=== PATIENT | female | born 1990 | race Caucasian/White ===

== ENCOUNTER 2022-01-11 16:31 | Outpatient (CLI) | payer OTHER, SELFPAY ==
[2022-01-11 16:48] LABS: Hematocrit 42.3 % (37.0-47.0); Hemoglobin 14.3 g/dL (12.0-15.0); Mean Corpuscular HGB Conc 33.8 g/dl (32-36); Mean Corpuscular Volume 88.9 fl (80-100); Mean Platelet Volume 10.1 fl (7.4-10.4); Platelet Count Result 362 k/mm3 (150-375); Red Blood Count 4.76 M/mm3 (4.2-5.4); Red Cell Distribution Width 13.6 % (11.5-14.5); White Blood Count 6.5 K/mm3 (4.5-10.0)
[2022-01-11 17:19] LABS: Erythrocyte Sedimentation Rate 6 mm/hr (0-20)
[2022-01-11 18:04] LABS: Alanine Aminotransferase 13 U/L (6-35); Alkaline Phosphatase 59 U/L (38-126); Anion Gap 8 mmol/L (8-16); Aspartate Amino Transferase 27 U/L (14-36); Bilirubin,Total 0.5 mg/dL (0.2-1.3); Blood Urea Nitrogen 8 mg/dL (7-17); CRP < 0.5 mg/dL (<1.0); Calcium 9.1 mg/dL (8.4-10.2); Carbon Dioxide 29 mmol/L (22-30); Chloride 101 mmol/L (98-107); Estimated Glomerular Filt Rate > 60; Glucose 94 mg/dL (65-110); Potassium 3.9 mmol/L (3.4-5.0); Sodium 138 mmol/L (137-145)
== END 2022-01-11 16:32 | disposition home or self-care (01) ==
LOC: ANHLAB 16:35
PROVIDERS: PCP Nurse Practitioner Family; Visit Provider Nurse Practitioner Family
DX: K50.90 Crohn's disease, unspecified, without complications (principal)
CPT/HCPCS: 36415; 80053; 85027; 85652; 86140

== ENCOUNTER 2022-06-17 00:16 | Day surgery (SDC) | payer OTHER, SELFPAY ==
[2022-06-06 12:22] VITALS: BMI 20.4
[2022-06-17 13:31] VITALS: BP 116/73; PULSE 67; RESP 18; TEMP 36.5; O2SAT 100
[2022-06-17] MEDS: LACTATED RINGERS 1,000 ML 150 ML IV CONT (13:41)
--- NOTE | 2022-06-17 13:43 | P.PNAN_ITS ---
Anes - Initial Pre Proc Eval Procedure: Operation Date: 06/17/22 09:00 Proposed Procedures p Colonoscopy - Timoteo Clrak MD Date/Time: 06/17/22 13:43 Surgeon: Timoteo Clark MD Pre Op Diagnosis: crohn's disease Patient Data Age: 31 Gender: F Height: 1.55 m Weight: 50.5 kg Last Vital Signs Temp 97.7 F 06/17/22 13:31 Pulse 67 06/17/22 13:31 Resp 18 06/17/22 13:31 BP 116/73 06/17/22 13:31 Pulse Ox 100 06/17/22 13:31 O2 Del Method Room Air 06/17/22 13:31 Allergies Allergy/AdvReac Type Severity Reaction Status Date / Time amoxicillin Allergy Mild Unknown Verified 06/17/22 13:30 brompheniramine Allergy Mild Itching Verified 06/17/22 13:30 latex Allergy Mild Unknown Verified 06/17/22 13:30 Penicillins Allergy Mild unknown Verified 06/17/22 13:30 tramadol Allergy Mild Unknown Verified 06/17/22 13:30 Home Medications Medication Instructions Recorded Confirmed Type amitriptyline 25 mg tablet 25 mg PO QHS PRN headache 11/04/21 06/06/22 History azathioprine 50 mg tablet 50 mg PO DAILY 3 months #90 tabs 02/23/22 06/06/22 Rx sulfasalazine 500 mg 2 g PO BID 05/27/22 06/06/22 History tablet,delayed release Patient hx anesthesia problems: none Family hx anesthesia problems: none Results Review: All pre-operative results and documents have been reviewed as part of the pre- operative evaluation. [facility] Past Medical History Medical History Crohn disease Social History Social History Smoking status: Current every day smoker Tobacco type: cigarettes and e-cigarettes/vaping Smokeless tobacco user: other Alcohol intake: unknown Substance use: never Living arrangements: with family Spiritual care concerns: No Anes - Eval Final PreProcedure Day of Procedure 06/17/22 13:43 Patient weight: normal Heart: regular rate and rhythm Lungs: clear to auscultation Airway: Mallampati scale class II Neurological: alert and oriented Last oral intake: >/= 8 hours (states had a sip of seven up in the parking lot: ups driver attest to her story; told her about the possibilty of aspiration and she states only a sip) ASA classification: II Emergent: no Anesthetic plan: proceed Anesthesia type and monitoring: general and standard monitoring Results Review: All pre-operative results and documents have been reviewed as part of the pre- operative evaluation. Informed Consent: The patient's anesthetic plan and its attendant risks and benefits were discuss ed with the patient/family/POA. Questions were solicited and answers provided to the satisfaction of the patient/family/POA.
--- NOTE | 2022-06-17 13:45 | WPDHPUPDATE1 ---
History and Physical Update Update Date/Time: 06/17/22 13:45 History and Physical has been reviewed, including an updated exam of the patient. There are NO changes in the patient's condition. Risks, benefits, and alternatives have been discussed and questions answered. Patient agrees to proceed with procedure.
[2022-06-17 14:09] VITALS: BP 108/68; PULSE 72; RESP 21; O2SAT 100
[2022-06-17 14:19] VITALS: BP 116/79; PULSE 62; RESP 19; O2SAT 100
[2022-06-17 14:29] VITALS: BP 120/83; PULSE 58; RESP 19; O2SAT 100
[2022-06-17 14:39] VITALS: BP 117/81; PULSE 60; RESP 20; O2SAT 100
== END 2022-06-17 14:52 | disposition home or self-care (01) ==
PROVIDERS: Visit Provider Internal Medicine Gastroenterology
PROC: 0DJD8ZZ Inspection of Lower Intestinal Tract, Via Natural or Artificial Opening Endoscopic (ICD-10-PCS; CPT 45378; principal; 2022-06-17 09:00)
DX: K50.90 Crohn's disease, unspecified, without complications (principal); K64.8 Other hemorrhoids; F17.210 Nicotine dependence, cigarettes, uncomplicated; F17.290 Nicotine dependence, other tobacco product, uncomplicated
CPT/HCPCS: 45380; 88305; J2704; J7120

== ENCOUNTER 2023-06-30 11:43 | Outpatient (CLI) | payer OTHER, SELFPAY ==
[2023-06-30 12:10] LABS: Hematocrit 38.8 % (37.0-47.0); Hemoglobin 13.1 g/dL (12.0-15.0); Mean Corpuscular HGB Conc 33.8 g/dl (32-36); Mean Corpuscular Hemoglobin 29.4 pg (26-34); Mean Corpuscular Volume 87.2 fl (80-100); Mean Platelet Volume 10.1 fl (7.4-10.4); Platelet Count Result 330 k/mm3 (150-375); Red Blood Count 4.45 M/mm3 (4.2-5.4); Red Cell Distribution Width 13.2 % (11.5-14.5); White Blood Count 6.6 K/mm3 (4.5-10.0)
[2023-06-30 12:27] LABS: Alanine Aminotransferase 13 U/L (6-35); Albumin Level 4.6 g/dL (3.5-5.1); Alkaline Phosphatase 51 U/L (38-126); Anion Gap 11 mmol/L (8-16); Aspartate Amino Transferase 22 U/L (14-36); Bilirubin,Total 0.6 mg/dL (0.2-1.3); Blood Urea Nitrogen 5 mg/dL (7-17); CRP < 0.5 mg/dL (<1.0); Calcium 8.8 mg/dL (8.4-10.2); Carbon Dioxide 24 mmol/L (22-30); Chloride 103 mmol/L (98-107); Estimated Glomerular Filt Rate > 60; Glucose 88 mg/dL (65-110); Potassium 3.4 mmol/L (3.4-5.0); Sodium 138 mmol/L (137-145)
[2023-06-30 13:14] LABS: Erythrocyte Sedimentation Rate 13 mm/hr (0-20)
[2023-06-30 13:32] LABS: Iron 83 ug/dL (37-170)
[2023-06-30 13:43] LABS: Percent Iron Saturation 24 % (20-50)
[2023-06-30 14:10] LABS: Ferritin 7.67 ng/mL (6.24-137)
[2023-07-04 09:58] LABS: Vitamin D 1,25 (OH)2 Total 49 pg/mL (18-72); Vitamin D2 1,25 (OH)2 <8 pg/mL; Vitamin D3 1,25 (OH)2 49 pg/mL
== END 2023-06-30 11:44 | disposition home or self-care (01) ==
LOC: ANHLAB 11:44
PROVIDERS: Visit Provider Nurse Practitioner
DX: K50.90 Crohn's disease, unspecified, without complications (principal)
CPT/HCPCS: 36415; 80053; 82652; 82728; 83540; 83550; 85027; 85652; 86140

== ENCOUNTER 2023-07-01 18:43 | Emergency (ER) | payer OTHER, SELFPAY ==
--- NOTE | ~2023-07-01 | CT_ITS ---
EXAMINATION: CT abdomen pelvis w con DATE: 07/01/2023 20:53 INDICATION: Right lower quadrant abdominal pain TECHNIQUE: Computed tomography (CT) of the abdomen and pelvis was performed with 100 mL Omnipaque-350 intravenous contrast. Automated exposure control and iterative reconstruction technique were employe d. The dose-length product was 221.21 mGy-cm. COMPARISON: None. FINDINGS: Lower thorax: Unremarkable Liver: Normal. Biliary/Gallbladder: Gallbladder is normal. No bile duct dilation. Pancreas: No mass or duct dilation. Spleen: Normal. Adrenals:No mass. Kidneys: No suspicious mass, obstructing stone, or hydronephrosis. GI tract: No small or large bowel dilation. Normal appendix. Mesentery/Peritoneum: No ascites, mass, or free air. Retroperitoneum: No mass. Pelvis: Pelvic organs are within normal limits. Right corpus luteal cyst. Small volume pelvic fluid, within physiologic range. Soft Tissues: Soft tissues and body wall unremarkable. Bones: No acute osseous finding. Right-sided L5 sacralization. IMPRESSION: No acute abdominopelvic process detected. Reviewed, dictated and finalized at location K. NG CUTTER
[2023-07-01 18:51] VITALS: BP 127/93; PULSE 78; RESP 16; TEMP 36.8; O2SAT 100
[2023-07-01] MEDS: SODIUM CHLORIDE 0.9% IV 1,000 ML 999 ML IV CONT (19:45)
[2023-07-01] MEDS: MORPHINE SULFATE (*CRX) 4 MG/ML INJ IV PUSH (19:45)
[2023-07-01] MEDS: ONDANSETRON INJ 4 MG/2 ML VIAL IV PUSH (19:45)
[2023-07-01 19:51] LABS: Basophils Percent Auto 0.5 % (0.2-1.2); Eosinophils Absolute Auto 0.1 K/mm3 (0-0.3); Eosinophils Percent Auto 0.8 % (0-4.4); Hematocrit 36.5 % (37.0-47.0); Hemoglobin 12.4 g/dL (12.0-15.0); Immature Granulocyte Absolute 0.03 K/mm3 (0.00-0.031); Immature Granulocyte Percent A 0.4 % (0-0.5); Lymphocytes Absolute Auto 1.75 K/mm3 (0.9-3.2); Lymphocytes Percent Auto 20.9 % (18.3-44.2); Mean Corpuscular Hemoglobin 29.7 pg (26-34); Mean Corpuscular Volume 87.3 fl (80-100); Mean Platelet Volume 10.8 fl (7.4-10.4); Monocytes Absolute Auto 0.6 K/mm3 (0.1-0.6); Monocytes Percent Auto 7.4 % (2.6-8.5); Neutrophils Absolute Auto 5.9 K/mm3 (1.3-6.7); Platelet Count Result 336 k/mm3 (150-375); Red Blood Count 4.18 M/mm3 (4.2-5.4); Red Cell Distribution Width 13.1 % (11.5-14.5); White Blood Count 8.4 K/mm3 (4.5-10.0)
--- NOTE | 2023-07-01 20:00 | ED.GENADULT ---
HPI - General Adult General Chief complaint: Abdominal Pain Stated complaint: RLQ pain Time Seen by Provider: 07/01/23 19:16 History of Present Illness HPI narrative: Patient 31-year-old female presents emerged department with chief complaint of abdominal pain. The patient reports over the last several days has been having pain in the right lower quadrant the patient states the pain started radiating to the right side of her back today. The patient states she has history of Crohn's and actually was seen by her clinical cytopathologist yesterday and did not tell her doctor about her abdominal pain. Patient denies fever denies vomiting denies diarrhea. Related Data Home Medications Medication Instructions Recorded Confirmed amitriptyline 25 mg tablet 25 mg PO QHS PRN headache 11/04/21 06/30/23 Allergies Allergy/AdvReac Type Severity Reaction Status Date / Time amoxicillin Allergy Mild Unknown Verified 07/01/23 19:28 brompheniramine Allergy Mild Itching Verified 07/01/23 19:28 latex Allergy Mild Unknown Verified 07/01/23 19:28 Penicillins Allergy Mild unknown Verified 07/01/23 19:28 tramadol Allergy Mild Unknown Verified 07/01/23 19:28 Review of Systems Review of Systems: A 10 system review of systems was completed on the patient and is negative except for what is stated in the HPI. Nursing and ancillary documentation was reviewed. PMFSH Past Medical History Medical History Abdominal cramping Crohn disease Facial rash Migraine Tobacco abuse Social History Social History Smoking status: Current every day smoker Tobacco type: cigarettes and e-cigarettes/vaping Smokeless tobacco user: other Alcohol intake: unknown Substance use: never Living arrangements: with family Spiritual care concerns: No Exam Narrative: GENERAL: Well-appearing, well-nourished, and in no acute distress. HEAD: Normocephalic, atraumatic. EYES: PERRLA and EOMI. ENT: Nares clear, no rhinorrhea or epistaxis. Mucous membranes moist. NECK: Supple. CHEST: Clear to auscultation. No respiratory distress. HEART: Regular rate and rhythm. No murmur heard. Normal peripheral pulses. ABDOMEN: Soft, tenderness to palpation in the right lower quadrant, nondistended, normal active bowel sounds. EXTREMITIES: Normal range of motion. No edema. SKIN: Warm, dry, no rash. NEURO: No focal deficits. Alert and oriented x3. PSYCH: Normal mood and affect. Course Vital Signs Vital signs: Vital Signs Temperature 36.8 C 07/01/23 18:51 Pulse Rate 78 07/01/23 18:51 Respiratory Rate 16 07/01/23 18:51 Blood Pressure 127/93 H 07/01/23 18:51 Pulse Oximetry 100 07/01/23 18:51 Oxygen Delivery Room Air 07/01/23 18:51 Temperature 36.8 C 07/01/23 18:51 Pulse Rate 78 07/01/23 18:51 Respiratory Rate 16 07/01/23 18:51 Blood Pressure 127/93 H 07/01/23 18:51 Pulse Oximetry 100 07/01/23 18:51 Oxygen Delivery Room Air 07/01/23 18:51 Medical Decision Making MDM Narrative Medical decision making narrative: Differential diagnosis includes colitis, diverticulitis, Urinalysis from yesterday showed no evidence of UTI CBC was within normal limits CMP was within normal limits lipase was normal. CT scan of the abdomen pelvis showed no evidence of acute abnormality Vital Signs Vital Signs: Vital Signs Temperature 36.8 C 07/01/23 18:51 Pulse Rate 78 07/01/23 18:51 Respiratory Rate 16 07/01/23 18:51 Blood Pressure 127/93 H 07/01/23 18:51 Pulse Oximetry 100 07/01/23 18:51 Oxygen Delivery Room Air 07/01/23 18:51 Temperature 36.8 C 07/01/23 18:51 Pulse Rate 78 07/01/23 18:51 Respiratory Rate 16 07/01/23 18:51 Blood Pressure 127/93 H 07/01/23 18:51 Pulse Oximetry 100 07/01/23 18:51 Oxygen Delivery Room Air 07/01/23 18:51 Lab Data 07/01/23
[2023-07-01 20:29] LABS: Alanine Aminotransferase 12 U/L (6-35); Albumin Level 4.3 g/dL (3.5-5.1); Alkaline Phosphatase 49 U/L (38-126); Anion Gap 8 mmol/L (8-16); Aspartate Amino Transferase 23 U/L (14-36); Bilirubin,Total 0.7 mg/dL (0.2-1.3); Blood Urea Nitrogen 8 mg/dL (7-17); Calcium 8.7 mg/dL (8.4-10.2); Carbon Dioxide 23 mmol/L (22-30); Chloride 105 mmol/L (98-107); Estimated CRCL calculation 86 ml/min; Estimated Glomerular Filt Rate > 60; Glucose 98 mg/dL (65-110); Potassium 3.4 mmol/L (3.4-5.0); Sodium 136 mmol/L (137-145)
[2023-07-01 20:56] LABS: Lipase 124 U/L (23-300)
[2023-07-01 21:58] LABS: Appearance Urine Clear (Clear); Bacteria Urine None Seen /hpf; Bilirubin Urine Negative (Negative); Blood Urine Trace (Negative); Color Urine Yellow (Yellow); Glucose Urine UA Negative (Negative); Ketones Urine Trace mg/dL (Negative); Leukocyte Esterase Ur Negative LEU/UL (Negative); Nitrate Urine Negative (Negative); Non Pathogenic Casts 0-2; Protein Urine Negative (Negative); RBC Urine 0-2 /hpf (0-2); Squamous Epithelial Cell Urine None seen /hpf (Few); Urobilinogen Urine 0.2 mg/dL (<2.0); WBC Urine 0-5 /hpf
[2023-07-01 22:04] LABS: Specific Grav Ur 1.059 (1.001-1.035)
[2023-07-01 22:05] LABS: Add Urine Microscopic? YES
[2023-07-01] MEDS: DICYCLOMINE HCL 10 MG CAPSULE 20 MG PO (22:35)
== END 2023-07-01 22:41 | disposition home or self-care (01) ==
PROVIDERS: Emergency Provider Emergency Medicine; PCP Physician Assistant
DX: R10.31 Right lower quadrant pain (principal); K50.90 Crohn's disease, unspecified, without complications; F17.210 Nicotine dependence, cigarettes, uncomplicated; F17.290 Nicotine dependence, other tobacco product, uncomplicated
CPT/HCPCS: 36415; 74177; 80053; 81001; 81025; 83690; 85025; 96361; 96374; 96375; 99284; A9270; J2270; J2405; J7030; Q9967

== ENCOUNTER 2023-07-07 01:05 | Day surgery (SDC) | payer OTHER, SELFPAY ==
[2023-07-06 15:41] VITALS: BMI 22.3
--- NOTE | 2023-07-06 15:48 | PC.NURSE ---
Report to the Outpatient Waiting Room, entrance under the green pavilion located off [facility], at time 1330 on date 07/07/23. Planned Procedure Time: 1530. Time changes happen often and if your time is changed the preop area will call you the afternoon before. - You and your visitor will be asked to self-screen and do not enter if you have any COVID symptoms. - A mask is optional within the hospital at this time. Patients may have clear liquids (water, carbonated beverages, clear teas, apple juice) until 3 hours prior to surgery with a maximum of 20 ounces. - No food from midnight until time of surgery Take the following medications with a SIP of water the morning of surgery: NONE DO NOT STOP ANY OF YOUR OTHER PRESCRIPTION MEDICATIONS PRIOR TO SURGERY ?EXCEPT THE FOLLOWING Medications to discontinue per physician: N/A Date to take last dose: N/A Please no make-up, nail faroese, hairspray, perfume, deodorant, or body powder the day of surgery. No jewelry (including any body piercings) or valuables the day of surgery, leave them at home. Please take a shower or bath the night before, or the morning of, surgery with an antibacterial soap. Wear comfortable, loose fitting clothing. - Jewelry must be removed prior to entering the operating room. Rings and piercings that are not removed may be cut off. - The hospital will not accept responsibility for valuables. - Please leave all valuables, including medications, at home the day of surgery. If you are going home after surgery, a licensed route driver must drive you home. - NO public transportation without another adult if you receive anesthesia. - We recommend that an adult stay with you for 24 hours following discharge. - We also recommend that you do not drive, make important decision, drink alcoholic beverages, or take any drugs that were not prescribed by your health care provider for at least 24 hours after your discharge time. Follow any additional instructions given to you from your surgeon. If you or anyone in your household have experienced Covid symptoms in the past week, please notify your surgeon or the nurse liaison at the phone number below for possible testing. Telephone instructions given to PT - MYRIAM LYNNE and asked if any additional questions and then verbalized understanding. Patient advised to call surgeon office or pre surgery nurse liaison [phone] if any additional questions.
[2023-07-07] VITALS (9 sets, daily range): BP systolic 99–125; BP diastolic 56–94; PULSE 51–85; RESP 14–20; TEMP 36.1–36.7; O2SAT 96–100
--- NOTE | 2023-07-07 06:37 | WPDHPUPDATE1 ---
History and Physical Update Update Date/Time: 07/07/23 06:37 History and Physical has been reviewed, including an updated exam of the patient. There are NO changes in the patient's condition. Risks, benefits, and alternatives have been discussed and questions answered. Patient agrees to proceed with procedure.
--- NOTE | 2023-07-07 06:40 | P.HP_ITS ---
H&P: HPI History of Present Illness Date/Time: 07/07/23 06:40 Chief Complaint: Right-sided ectopic Narrative: This is 32-year-old female with an ectopic on she is admitted for laparoscopic salpingectomy or salpingitis risks and benefits [facility] Past Medical History Medical History Abdominal cramping Crohn disease Facial rash Migraine Tobacco abuse Social History Social History Smoking status: Current every day smoker Tobacco type: e-cigarettes/vaping Smokeless tobacco user: other Alcohol intake: current Alcohol use details: RARE Substance use: current Substance use type: marijuana Other substance usage details: THC VAPE FOR SLEEP Living arrangements: with family Spiritual care concerns: No Meds Home Medications and Allergies Home Medications Medication Instructions Recorded Confirmed Type amitriptyline 25 mg tablet 25 mg PO QHS PRN headache 11/04/21 07/06/23 History azathioprine 50 mg tablet 50 mg PO DAILY 3 months #90 tabs 12/22/22 07/06/23 Rx sulfasalazine 500 mg tablet 2 g PO BID 1 month #240 tabs 01/10/23 07/06/23 Rx adalimumab 40 mg/0.4 mL See Rx Instructions subcut 06/30/23 07/06/23 Rx subcutaneous pen kit (Humira(CF) .COMPLEX #2 ea Pen) adalimumab 80 mg/0.8 mL See Rx Instructions subcut 06/30/23 07/06/23 Rx subcutaneous pen kit (Humira(CF) .COMPLEX #3 ea Pen Crohn's-Ulc Colitis-Hid Sup Strt) dicyclomine 20 mg tablet 20 mg PO QID PRN abdominal 07/01/23 07/06/23 Rx discomfort #20 tabs ondansetron 4 mg disintegrating 4 mg PO Q8H PRN nausea and 07/01/23 07/06/23 Rx tablet vomiting #10 tabs oxycodone-acetaminophen 5 mg-325 1 tablet PO Q4H PRN pain #20 tabs 07/07/23 Rx mg tablet (Endocet) Allergies Allergy/AdvReac Type Severity Reaction Status Date / Time amoxicillin Allergy Mild Hives Verified 07/06/23 15:39 brompheniramine Allergy Mild Itching Verified 07/06/23 15:39 latex Allergy Mild Itching Verified 07/06/23 15:39 Penicillins Allergy Mild Hives Verified 07/06/23 15:39 tramadol Allergy Mild Unknown Verified 07/06/23 15:39 Exam Const: General: cooperative, healthy appearing and comfortable Nutritional Appearance: average body habitus Orientation/consciousness: oriented to person, oriented to place and oriented to time HENMT: Head: normal to inspection Resp: Effort & Inspection: normal respiratory effort Cardio: Rate: regular rate Rhythm: regular rhythm Heart sounds: S1 normal heart sound present and S2 normal heart sound present GI: Inspection: normal to inspection : External Female Exam: normal external appearance Speculum Exam - Vagina: normal appearance of the vagina and vaginal bleeding Speculum Exam - Cervix: Cervical os open Bimanual exam- vagina & uterus: uterine size normal Bimanual Exam- Adnexa, other: tender on the right Assessment and Plan Assessment and plan (1) Ectopic : Code(s): O00.90 - Unspecified ectopic without intrauterine Status: Acute Plan Laparoscopic salpingostomy versus salpingectomy
[2023-07-07] MEDS: LACTATED RINGERS 1,000 ML 30 ML IV CONT ×2 (14:20→17:55)
[2023-07-07] MEDS: KETOROLAC 15 MG/ML VIAL (*BKC) IV PUSH (14:20)
[2023-07-07] MEDS: ACETAMINOPHEN 500 MG TABLET 1000 MG PO (14:20)
[2023-07-07] MEDS: SCOPOLAMINE 1.5 MG PATCH TRANSDERM (14:53)
--- NOTE | 2023-07-07 15:11 | WPDANESEPPF ---
Anes - Initial Pre Proc Eval Procedure: Operation Date: 07/07/23 15:30 Proposed Procedures p Laparoscopic Right Salpingostomy, Possible Right Salpingectomy - Ike Day MD Date/Time: 07/07/23 15:11 Surgeon: Ike Day MD Pre Op Diagnosis: tubal Patient Data Age: 32 Gender: F Height: 1.56 m Weight: 52.7 kg Last Vital Signs Temp 36.7 C 07/07/23 14:42 Pulse 69 07/07/23 14:42 Resp 14 07/07/23 14:42 BP 116/80 07/07/23 14:42 Pulse Ox 100 07/07/23 14:42 O2 Del Method Room Air 07/07/23 14:42 Allergies Allergy/AdvReac Type Severity Reaction Status Date / Time amoxicillin Allergy Mild Hives Verified 07/07/23 14:54 brompheniramine Allergy Mild Itching Verified 07/07/23 14:54 latex Allergy Mild Itching Verified 07/07/23 14:54 Penicillins Allergy Mild Hives Verified 07/07/23 14:54 tramadol Allergy Mild Unknown Verified 07/07/23 14:54 Home Medications Medication Instructions Recorded Confirmed Type amitriptyline 25 mg tablet 25 mg PO QHS PRN headache 11/04/21 07/06/23 History azathioprine 50 mg tablet 50 mg PO DAILY 3 months #90 tabs 12/22/22 07/06/23 Rx sulfasalazine 500 mg tablet 2 g PO BID 1 month #240 tabs 01/10/23 07/06/23 Rx adalimumab 40 mg/0.4 mL See Rx Instructions subcut 06/30/23 07/06/23 Rx subcutaneous pen kit (Humira(CF) .COMPLEX #2 ea Pen) adalimumab 80 mg/0.8 mL See Rx Instructions subcut 06/30/23 07/06/23 Rx subcutaneous pen kit (Humira(CF) .COMPLEX #3 ea Pen Crohn's-Ulc Colitis-Hid Sup Strt) dicyclomine 20 mg tablet 20 mg PO QID PRN abdominal 07/01/23 07/06/23 Rx discomfort #20 tabs ondansetron 4 mg disintegrating 4 mg PO Q8H PRN nausea and 07/01/23 07/06/23 Rx tablet vomiting #10 tabs oxycodone-acetaminophen 5 mg-325 1 tablet PO Q4H PRN pain #20 tabs 07/07/23 Rx mg tablet (Endocet) Patient hx anesthesia problems: none Family hx anesthesia problems: none Results Review: All pre-operative results and documents have been reviewed as part of the pre-operative evaluation. [facility] Past Medical History Medical History Abdominal cramping Crohn disease Facial rash Migraine Tobacco abuse Social History Social History Smoking status: Current every day smoker Tobacco type: e-cigarettes/vaping Smokeless tobacco user: other Alcohol intake: current Alcohol use details: RARE Substance use: current Substance use type: marijuana Other substance usage details: THC VAPE FOR SLEEP Living arrangements: with family Spiritual care concerns: No Anes - Eval Final PreProcedure Day of Procedure 07/07/23 15:11 Patient weight: normal Heart: regular rate and rhythm Lungs: clear to auscultation Airway: Mallampati scale class II Neurological: alert and oriented Last oral intake: >/= 8 hours ASA classification: II Emergent: no Anesthetic plan: proceed Anesthesia type and monitoring: general ETT and standard monitoring Results Review: All pre-operative results and documents have been reviewed as part of the pre-operative evaluation. Informed Consent: The patient's anesthetic plan and its attendant risks and benefits were discussed with the patient/family/POA. Questions were solicited and answers provided to the satisfaction of the patient/family/POA.
--- NOTE | 2023-07-07 16:33 | P.OP_ITS ---
Procedure Note - Detailed Date of Procedure 07/07/23 Pre-op Diagnosis tubal Post-op Diagnosis Same Procedure Performed Laparoscopic right salpingectomy with resection of ectopic Surgeon Ike Day MD Anesthesia General Indications Since 32-year-old 1 para 0 with a right tubal ectopic Findings Normal-appearing ovaries and tubes were left. A right ectopic was seen Description of Procedure Patient is prepped draped in the normal sterile fashion placed in dorsal lithotomy position. Under excellent general trach anesthesia weighted speculum placed posterior fornix vagina. Anterior lip of cervix grasped with single- tooth tenaculum and the Patterson's cannula inserted cervix attached to the single- tooth. This was used later for uterine ablation. After empty the bladder clear urine weighted speculum was removed gloves were changed. An infraumbilical incision made the Veress needle passed in the abdomen. Abdomen filled with CO2 gas [id number]. 5mm trocar advanced under direct visualization assuring no injury. Patient placed in Trendelenburg and a suprapubic incision made the 5mm trocar advanced under direct visualization. The ectopic was seen in the distal 3rd of the right fallopian tube. Right lower quadrant incision made 8mm trocar advanced in the abdomen under direct visualization assuring injury. The tube was placed on stretch in linear incision made with monopolar cautery and the ectopic picked out of the tube.. It appeared to be removed in toto. The couple raw surface areas were cauterized with 35 w per 2nd monopolar cautery irrigation undertaken until clear. The remainder the pelvis appeared within normal limits after irrigation was used to clear that out. The appendix gallbladder and liver edge all appeared within normal limits the lower site removed. The gas removed from the abdomen. The upper sites removed the surgeon closed with 4 Monocryl glue patient was wakened up in satisfactory condition. All sponge, needle, counts were correct. There were no immediate complications blood loss estimated at25cc Estimated Blood Loss 5 Drains No Packing No Pathology Yes Complications No immediate complications Condition Stable Disposition PACU
[2023-07-07] MEDS: fentaNYL CITRATE INJ (*CRX) 100 MCG/2 ML VIAL 25 MCG IV PUSH ×4 (16:47→16:56)
[2023-07-07] MEDS: oxyCODONE HCL (*CRX) 5 MG TAB IR PO (18:11)
[2023-07-07] MEDS: RHO(D) IMMUNE GLOBULIN 300 MCG/2 ML SYRINGE IM (18:29)
--- NOTE | 2023-07-07 18:30 | SUR.PHASEII ---
MIRIAM LOT # [id number], EXP 10/13/2025.
== END 2023-07-07 18:55 | disposition home or self-care (01) ==
PROVIDERS: PCP Physician Assistant; Visit Provider Obstetrics & Gynecology
PROC: (CPT 49320; principal; 2023-07-07 15:30)
DX: O00.101 Right tubal pregnancy without intrauterine pregnancy (principal); O99.619 Diseases of the digestive system complicating pregnancy, unspecified trimester; K50.90 Crohn's disease, unspecified, without complications; O99.320 Drug use complicating pregnancy, unspecified trimester; F12.90 Cannabis use, unspecified, uncomplicated; O99.330 Smoking (tobacco) complicating pregnancy, unspecified trimester; F17.290 Nicotine dependence, other tobacco product, uncomplicated; Z79.620 Long term (current) use of immunosuppressive biologic; Z3A.00 Weeks of gestation of pregnancy not specified
CPT/HCPCS: 59151; 36415; 85461; 86850; 86900; 86901; 88305; 90384; A9270; J0330; J1100; J1885; J2250; J2405; J2704; J2790; J3010; J7030; J7120

== ENCOUNTER 2024-04-11 12:21 | Outpatient (CLI) | payer OTHER, SELFPAY ==
[2024-04-11 14:23] LABS: Hepatitis B Surface Antigen Negative (Negative)
[2024-04-11 14:40] LABS: Hepatitis B Surface Anti Res Negative
[2024-04-12 10:29] LABS: Hepatitis B Core Ab Total NON-REACTIVE (NON-REACTIVE)
[2024-04-17 10:48] LABS: NIL 0.04 IU/mL; Quantiferon TB Plus, 1T NEGATIVE (NEGATIVE)
== END 2024-04-11 12:22 | disposition home or self-care (01) ==
LOC: ANHLAB 12:24
PROVIDERS: Visit Provider Nurse Practitioner Family
DX: K50.90 Crohn's disease, unspecified, without complications (principal); Z79.899 Other long term (current) drug therapy; Z11.59 Encounter for screening for other viral diseases
CPT/HCPCS: 36415; 86480; 86704; 86706; 87340

== ENCOUNTER 2024-07-04 12:58 | Outpatient (CLI) | payer OTHER, SELFPAY ==
[2024-07-04 13:29] LABS: Hematocrit 43.3 % (37.0-47.0); Hemoglobin 14.5 g/dL (12.0-15.0); Mean Corpuscular HGB Conc 33.5 g/dl (32-36); Mean Corpuscular Hemoglobin 28.5 pg (26-34); Mean Corpuscular Volume 85.1 fl (80-100); Mean Platelet Volume 10.5 fl (7.4-10.4); Platelet Count Result 360 k/mm3 (150-375); Red Blood Count 5.09 M/mm3 (4.2-5.4); Red Cell Distribution Width 13.7 % (11.5-14.5); White Blood Count 7.7 K/mm3 (4.5-10.0)
[2024-07-04 13:40] LABS: Alanine Aminotransferase 14 U/L (6-35); Albumin Level 5.2 g/dL (3.5-5.1); Alkaline Phosphatase 59 U/L (38-126); Anion Gap 11 mmol/L (4-12); Aspartate Amino Transferase 32 U/L (14-36); Bilirubin,Total 0.5 mg/dL (0.2-1.3); Blood Urea Nitrogen 7 mg/dL (7-17); CRP < 0.5 mg/dL (<1.0); Calcium 9.7 mg/dL (8.4-10.2); Carbon Dioxide 26 mmol/L (22-30); Chloride 102 mmol/L (98-107); Estimated Glomerular Filt Rate > 60; Glucose 81 mg/dL (65-110); Potassium 3.7 mmol/L (3.4-5.0); Sodium 139 mmol/L (137-145)
[2024-07-04 13:55] LABS: Iron 70 ug/dL (37-170)
[2024-07-04 14:04] LABS: Erythrocyte Sedimentation Rate 1 mm/hr (0-20)
[2024-07-04 14:05] LABS: Percent Iron Saturation 17 % (20-50)
[2024-07-04 14:31] LABS: Ferritin 6.11 ng/mL (6.24-137)
[2024-07-04 14:43] LABS: Folic Acid 7.9 ng/mL (2.76->20)
== END 2024-07-04 12:59 | disposition home or self-care (01) ==
PROVIDERS: Visit Provider Nurse Practitioner
DX: K50.90 Crohn's disease, unspecified, without complications (principal); R10.9 Unspecified abdominal pain
CPT/HCPCS: 36415; 80053; 82607; 82652; 82728; 82746; 83540; 83550; 85027; 85652; 86140

== ENCOUNTER 2024-07-18 05:25 | Emergency (ER) | payer OTHER, SELFPAY ==
--- NOTE | ~2024-07-18 | XR_ITS ---
EXAMINATION: XR hand LT min 3V DATE: 07/18/2024 06:57 INDICATION: Left hand pain post fall TECHNIQUE: Posteroanterior, oblique and lateral views of the left hand were obtained. COMPARISON: 07/18/2024 FINDINGS: Alignment is normal. No fracture. Joint spaces are normal. Soft tissues are unremarkable. IMPRESSION: 1. Negative left hand radiographs. Reviewed, dictated and finalized at location A. [facility]
--- NOTE | ~2024-07-18 | XR_ITS ---
EXAMINATION: XR finger 1st LT min 2V DATE: 07/18/2024 05:59 INDICATION: Pain at the left first metacarpal post injury TECHNIQUE: Dorsal palmar, lateral and 2 oblique views of the left first digit were obtained COMPARISON: None FINDINGS: Alignment is normal. No fracture. Joint spaces are normal. Soft tissues are unremarkable. IMPRESSION: 1. Negative left thumb radiographs. Reviewed, dictated and finalized at location A. [facility]ACTITIONER
[2024-07-18 05:32] VITALS: BP 128/93; PULSE 97; RESP 15; TEMP 36.6; O2SAT 99
[2024-07-18] MEDS: HYDROcodone/acetaminophen (*CRX) 5-325 MG TABLET 1 TAB PO (06:24)
--- NOTE | 2024-07-18 06:34 | ED_ITS ---
HPI - General Adult General Chief complaint: Extremity Injury, Upper Stated complaint: fall, left thumb pain Time Seen by Provider: 07/18/24 06:07 History of Present Illness HPI narrative: patient is a 33-year-old female who presents emergency department with chief complaint of left thumb pain and left hand pain. Patient reports that she got up to go to the bathroom and tripped and fell landing on her left hand patient reports that she has pain in her left thumb and reports that she cannot move her thumb due to the pain Related Data Home Medications Medication Instructions Recorded Confirmed amitriptyline 25 mg tablet 25 mg PO QHS PRN headache 11/04/21 06/12/24 Allergies Allergy/AdvReac Type Severity Reaction Status Date / Time amoxicillin Allergy Mild Hives Verified 07/18/24 05:37 brompheniramine Allergy Mild Itching Verified 07/18/24 05:37 latex Allergy Mild Itching Verified 07/18/24 05:37 Penicillins Allergy Mild Hives Verified 07/18/24 05:37 tramadol Allergy Mild Unknown Verified 07/18/24 05:37 [facility] Past Medical History Medical History Abdominal cramping Crohn disease Facial rash High risk medication use Migraine Need for hepatitis B screening test Tobacco abuse Social History Social History Smoking status: Current every day smoker Tobacco type: e-cigarettes/vaping Smokeless tobacco user: other Alcohol intake: current Alcohol use details: RARE Substance use: current Substance use type: marijuana Other substance usage details: THC VAPE FOR SLEEP Living arrangements: with family Spiritual care concerns: No Course Vital Signs Vital signs: Vital Signs Temperature 36.6 C 07/18/24 05:32 Pulse Rate 97 07/18/24 05:32 Respiratory Rate 15 07/18/24 05:32 Blood Pressure 128/93 H 07/18/24 05:32 Pulse Oximetry 99 07/18/24 05:32 Oxygen Delivery Room Air 07/18/24 05:32 Temperature 36.6 C 07/18/24 05:32 Pulse Rate 97 07/18/24 05:32 Respiratory Rate 15 07/18/24 05:32 Blood Pressure 128/93 H 07/18/24 05:32 Pulse Oximetry 99 07/18/24 05:32 Oxygen Delivery Room Air 07/18/24 05:32 Medical Decision Making [facility] Narrative Medical decision making narrative: plain film x-rays were obtained that showed no evidence of fracture differential diagnosis includes fracture, sprain, contusion Vital Signs Vital Signs: Vital Signs Temperature 36.6 C 07/18/24 05:32 Pulse Rate 97 07/18/24 05:32 Respiratory Rate 15 07/18/24 05:32 Blood Pressure 128/93 H 07/18/24 05:32 Pulse Oximetry 99 07/18/24 05:32 Oxygen Delivery Room Air 07/18/24 05:32 Temperature 36.6 C 07/18/24 05:32 Pulse Rate 97 07/18/24 05:32 Respiratory Rate 15 07/18/24 05:32 Blood Pressure 128/93 H 07/18/24 05:32 Pulse Oximetry 99 07/18/24 05:32 Oxygen Delivery Room Air 07/18/24 05:32 Discharge Plan Discharge Clinical Impression: Contusion of hand, left, Left thumb sprain Patient Disposition: Home, Self-Care Condition: Stable Instructions: Antibiotic Form, Contusion in Adults (ED), Finger Sprain (ED) Prescriptions: No Action amitriptyline 25 mg tablet 25 mg PO QHS PRN (Reason: headache) ondansetron 4 mg tablet,disintegrating 4 mg PO Q8H PRN (Reason: nausea and vomiting) Qty: 10 0RF dicyclomine 20 mg tablet 20 mg PO QID PRN (Reason: abdominal discomfort) Qty: 20 0RF oxycodone-acetaminophen [Endocet] 5-325 mg tablet 1 tablet PO Q4H PRN (Reason: pain) Qty: 20 0RF azathioprine 50 mg tablet 50 mg PO DAILY 90 Days Qty: 90 11RF sulfasalazine 500 mg tablet 2 g PO BID 30 Days Qty: 240 6RF Rx Instructions: give with food (meal/snack) Humira(CF) Pen [id number] 80 mg/0.8 mL pen injector kit See Rx Instructions subcut .COMPLEX Qty: 3 0RF Rx Instructions: inject two - 80 mg/0.8 mL pens on Day 1; inject one - 80 mg/0.8 mL pen on Day 15 of therapy subcut Humira(CF) Pen 40 mg/0.4 mL pen injector kit See Rx Instructions subcut .COMPLEX Qty: 2 11RF Rx Instructions: inject one - 40 mg/0.4 mL pen every 2 weeks subcut, Follow-up/Referrals: Luis Regalado MD [Physician] - UNKNOWN,DOCTOR [Primary Care Provider] - Time of Disposition: 07:11
[2024-07-18 07:26] VITALS: BP 122/80; PULSE 95; RESP 16; O2SAT 100
== END 2024-07-18 07:27 | disposition home or self-care (01) ==
PROVIDERS: Emergency Provider Emergency Medicine
DX: S63.602A Unspecified sprain of left thumb, initial encounter (principal); S60.222A Contusion of left hand, initial encounter; K50.90 Crohn's disease, unspecified, without complications; F17.290 Nicotine dependence, other tobacco product, uncomplicated; Z79.899 Other long term (current) drug therapy; Z79.620 Long term (current) use of immunosuppressive biologic; W01.0XXA Fall on same level from slipping, tripping and stumbling without subsequent striking against object, initial encounter
CPT/HCPCS: 73130; 73140; 99283; A9270

== ENCOUNTER 2025-02-03 14:59 | Outpatient (CLI) | payer OTHER, SELFPAY ==
[2025-02-03 15:33] LABS: Hematocrit 40.7 % (37.0-47.0); Hemoglobin 13.6 g/dL (12.0-15.0); Mean Corpuscular HGB Conc 33.4 g/dl (32-36); Mean Corpuscular Volume 83.9 fl (80-100); Mean Platelet Volume 10.6 fl (7.4-10.4); Platelet Count Result 308 k/mm3 (150-375); Red Blood Count 4.85 M/mm3 (4.2-5.4); Red Cell Distribution Width 13.6 % (11.5-14.5); White Blood Count 6.8 K/mm3 (4.5-10.0)
[2025-02-03 15:54] LABS: Iron 100 ug/dL (37-170)
[2025-02-03 16:02] LABS: Alanine Aminotransferase 17 U/L (6-35); Albumin Level 4.6 g/dL (3.5-5.1); Alkaline Phosphatase 45 U/L (38-126); Anion Gap 10 mmol/L (4-12); Aspartate Amino Transferase 33 U/L (14-36); Bilirubin,Total 0.6 mg/dL (0.2-1.3); Blood Urea Nitrogen 7 mg/dL (7-17); CRP < 0.5 mg/dL (<1.0); Calcium 9.1 mg/dL (8.4-10.2); Carbon Dioxide 24 mmol/L (22-30); Chloride 104 mmol/L (98-107); Estimated Glomerular Filt Rate > 60; Glucose 97 mg/dL (65-110); Potassium 3.2 mmol/L (3.4-5.0); Sodium 138 mmol/L (137-145); Total Protein 7.8 g/dL (6.3-8.2)
[2025-02-03 16:04] LABS: Percent Iron Saturation 28 % (20-50)
[2025-02-03 16:07] LABS: Erythrocyte Sedimentation Rate 5 mm/hr (0-20)
[2025-02-03 16:21] LABS: Hepatitis B Surface Antigen Negative (Negative)
[2025-02-03 16:31] LABS: Ferritin 7.27 ng/mL (6.24-137)
[2025-02-03 16:38] LABS: Hepatitis B Surface Anti Res Negative
[2025-02-03 17:06] LABS: Folic Acid 7.2 ng/mL (2.76->20)
[2025-02-05 02:09] LABS: Hepatitis B Core Ab Total NON-REACTIVE (NON-REACTIVE)
[2025-02-06 07:34] LABS: Vitamin D 1,25 (OH)2 Total 45 pg/mL (18-72); Vitamin D2 1,25 (OH)2 <8 pg/mL; Vitamin D3 1,25 (OH)2 45 pg/mL
== END 2025-02-03 15:00 | disposition home or self-care (01) ==
LOC: ANHLAB 15:01
PROVIDERS: Visit Provider Nurse Practitioner
DX: K50.90 Crohn's disease, unspecified, without complications (principal); R14.0 Abdominal distension (gaseous); Z11.59 Encounter for screening for other viral diseases; Z79.620 Long term (current) use of immunosuppressive biologic
CPT/HCPCS: 36415; 80053; 82607; 82652; 82728; 82746; 83540; 83550; 85027; 85652; 86140; 86480; 86704; 86706; 87340

== ENCOUNTER → 2025-06-18 14:11 | Outpatient (CLI) | payer OTHER, SELFPAY ==
--- NOTE | ~2025-06-18 | XR_ITS ---
Examination: XR chest 2V Clinical History: R05.3 - Chronic cough 1.5x months smoker hx bronchitis Comparison: None Technique: PA and Lateral Findings: Cardiomediastinal silhouette normal size and configuration. Lungs clear. No acute bony abnormality. IMPRESSION: 1. No acute cardiopulmonary findings. Reviewed, dictated and finalized at location R.
== END ==
PROVIDERS: PCP Nurse Practitioner Family; Visit Provider Nurse Practitioner Family
DX: R05.3 Chronic cough (principal)
CPT/HCPCS: 71046